=== PATIENT | female | born 1965 | race Asian ===

== ENCOUNTER 2016-07-09 06:52 | Day surgery (SDC) | payer OTHER ==
[~2016-07-09] VITALS: Ht 160 cm; Wt 61.2 kg
[~2016-07-09 06:52] MED LIST: FERR240T9 PO; MULT1CAP20 PO
[2016-07-09 07:42] VITALS: Ht 160 cm; Wt 61.2 kg
[2016-07-09] MEDS ORDERED: no home meds (07:47)
[2016-07-09 07:50] VITALS: BP 133/85; PULSE 53; RESP 20
[2016-07-09] MEDS ORDERED: FENTAnyl 50 MCG/ML VIAL ONE (09:25)
[2016-07-09] MEDS ORDERED: MIDAZOLAM 1 MG/ML 2 ML INJ ONE ×2 (09:25)
[2016-07-09 09:30] VITALS: BP 138/81; PULSE 58; RESP 18
--- NOTE | 2016-07-09 10:25 | GILP ---
DATE OF PROCEDURE: 07/09/2016 PROCEDURE: Colonoscopy. PREOPERATIVE DIAGNOSIS: Screening colonoscopy to rule out colon polyps. POSTOPERATIVE DIAGNOSES: Limited colonoscopy because of suboptimal prep. DESCRIPTION OF PROCEDURE: After the informed written consent was obtained, the patient was asked to lie on the left lateral side. The patient was given 3 mg Versed and 75 mcg of fentanyl as intraven ous anesthesia. When the patient became somnolent, the Olympus video colonoscope was introduced into the rectum and scope was advanced up to splenic flexure a lot of solid stool was noted because of, this scope could not be advanced beyond splenic flexure. Scope at this time was withdrawn and the procedure was ter minated. PLAN: Recommend repeat colonoscopy at a later date. Dictated By: TANA GONZALEZ/NICO Conf#: [id number] DID#: [id number] CC: TANA WILCOX MD; [facility];*EndCC*
== END 2016-07-09 11:27 | disposition home or self-care (01) ==
LOC: GIL 06:52
PROVIDERS: ATTEND Internal Medicine Gastroenterology
DX: Z12.11 Encounter for screening for malignant neoplasm of colon (principal)
CPT/HCPCS: 45378; J2250; J3010